=== PATIENT | female | born 1990 | race Caucasian/White ===

== ENCOUNTER 2017-10-22 05:00 | Inpatient (IN) | payer BC ==
[2017-10-22] MEDS ORDERED: Misoprostol 200 MCG Tab PO PRN (05:09)
[2017-10-22] MEDS ORDERED: Butorphanol 1 MG/ML SDV IVPUSH PRN (05:09)
[2017-10-22] MEDS ORDERED: Terbutaline 1 MG/ML SDV SUBCUT PRN (05:09)
[2017-10-22] MEDS ORDERED: Methylergonovine 0.2 MG/1 ML Amp IM PRN (05:09)
[2017-10-22] MEDS ORDERED: Sodium Chloride 0.9% 2.5 ML Syringe FLUSH PRN (05:09)
[2017-10-22] MEDS ORDERED: Lidocaine 1% 50 ML MDV INJECT PRN (05:09)
[2017-10-22] MEDS ORDERED: Sodium Chloride 0.9% 10 ML Syringe FLUSH PRN (05:09)
[2017-10-22] MEDS ORDERED: Carboprost Tromethamine 250 MCG/1 ML Amp IM PRN (05:09)
[2017-10-22] MEDS ORDERED: Nalbuphine 10 MG/1 ML Vial IVPUSH PRN (05:09)
[2017-10-22] MEDS ORDERED: Water For Irrigation,Sterile 1,000 ML Container IRR PRN (05:09)
[2017-10-22] MEDS ORDERED: Lactated Ringers 1,000 ML IV SCH (05:15)
[2017-10-22] MEDS ORDERED: Oxytocin/0.9 % Sodium Chloride 30 UNIT/500 ML BAG IV SCH ×2 (05:15)
[2017-10-22] MEDS ORDERED: Misoprostol 25 MCG (1/4 of 100 MCG) Tab VAG SCH (05:15)
--- NOTE | 2017-10-22 16:08 | PCM.PREANE ---
Preanesthetic Assessment - Procedure Proposed Procedure: labor epidural - Anesthesia/Transfusion/Family Hx Anesthesia History: Prior Anesthesia Without Reaction Family History of Anesthesia Reaction: No Transfusion History: No Prior Transfusion(s) - Review of Systems Other: Reports: None - Physical Assessment Height: 5 ft 4 in Weight: 71.214 kg ASA Class: 2 Mental Status: Alert & Oriented x3 Airway Class: Mallampati = 1 Dentition: Reports: Normal Dentition ROM/Head Extension: Full - Lab Values: Laboratory Last Values WBC 9.21 K/uL (4.0-11.0) 10/22/17 05:33 RBC 4.01 M/uL (4.30-5.90) L 10/22/17 05:33 Hgb 12.5 g/dL (12.0-16.0) 10/22/17 05:33 Hct 37.2 % (36.0-46.0) 10/22/17 05:33 MCV 92.8 fL (80.0-98.0) 10/22/17 05:33 MCH 31.2 pg (27.0-32.0) 10/22/17 05:33 MCHC 33.6 g/dL (31.0-37.0) 10/22/17 05:33 RDW Std Deviation 46.2 fl (28.0-62.0) 10/22/17 05:33 RDW Coeff of Tad 14 % (11.0-15.0) 10/22/17 05:33 Plt Count 218 K/uL (150-400) 10/22/17 05:33 MPV 9.80 fL (7.40-12.00) 10/22/17 05:33 Nucleated RBC % 0.0 /100WBC 10/22/17 05:33 Nucleated RBCs # 0 K/uL 10/22/17 05:33 POC Glucose 106 mg/dL (60-110) 10/22/17 05:32 Blood Type B POSITIVE 10/22/17 05:33 Antibody Screen NEGATIVE 10/22/17 05:33 - Allergies Allergies/Adverse Reactions: Allergies Allergy/AdvReac Type Severity Reaction Status Date / Time No Known Allergies Allergy Verified 05/14/15 05:29 - Blood Blood Available: Yes Product(s) Available: PRBC - Acknowledgements Anesthesia Type Planned: Epidural Pt an Appropriate Candidate for the Planned Anesthesia: Yes Alternatives and Risks of Anesthesia Discussed w Pt/Guardian: Yes Pt/Guardian Understands and Agrees with Anesthesia Plan: Yes PreAnesthesia Questionnaire - Past Health History Medical/Surgical History: Denies 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: - Past Surgical History Other Neurological Surgeries/Procedures: epidural x 2 with previous child - SUBSTANCE USE Smoking Status *Q: Never Smoker Tobacco Use Within Last Twelve Months: No Second Hand Smoke Exposure: No Recreational Drug Use History: No - CURRENT (IN HOUSE) MEDS Current Meds: Current Medications Butorphanol Tartrate (Stadol) 1 mg IVPUSH Q1H PRN PRN Reason: Pain Carboprost Tromethamine (Hemabate Ds) 250 mcg IM ASDIRECTED PRN PRN Reason: Post Hemorrhage Lactated Ringer's (Ringers, Lactated) 1,000 mls @ 150 mls/hr IV ASDIRECTED SAURABH Oxytocin/Sodium Chloride (Oxytocin 30 Unit/500 Ml-Ns) 30 unit in 500 mls @ 250 mls/hr IV TITRATE SAURABH Oxytocin/Sodium Chloride (Oxytocin 30 Unit/500 Ml-Ns) 30 unit in 500 mls @ 2 mls/hr IV TITRATE SAURABH; 2 MUNITS/MIN PRN Reason: Protocol Last Titration: 10/22/17 15:43 Dose: 16 munits/min, 16 mls/hr Lidocaine HCl (Xylocaine 1%) 50 ml INJECT .ONCE PRN PRN Reason: Laceration repair Methylergonovine Maleate (Methergine) 0.2 mg IM ASDIRECTED PRN PRN Reason: Post Hemorrhage Misoprostol (Cytotec) 200 mcg PO .ONCE PRN PRN Reason: Post Hemorrhage Misoprostol (Cytotec) 25 mcg VAG .ONCE SAURABH Last Admin: 10/22/17 05:59 Dose: 25 mcg Nalbuphine HCl (Nubain) 10 mg IVPUSH Q1H PRN PRN Reason: Pain (severe 7-10) Sodium Chloride (Saline Flush) 10 ml FLUSH ASDIRECTED PRN PRN Reason: Keep Vein Open Sodium Chloride (Saline Flush) 2.5 ml FLUSH ASDIRECTED PRN PRN Reason: Keep Vein Open Sterile Water (Sterile Water For Irrigation) 1,000 ml IRR ASDIRECTED PRN PRN Reason: delivery Terbutaline Sulfate (Brethine) 0.25 mg SUBCUT ASDIRECTED PRN PRN Reason: Tacysystole
[2017-10-22] MEDS ORDERED: Ropivacaine 0.2% 2 MG/ML 20 ML SDV ONE (16:11)
[2017-10-22] MEDS ORDERED: fentaNYL 100 MCG/2 ML SDV ONE (16:11)
[2017-10-22] MEDS ORDERED: Ropivacaine 100 ML ONE (16:11)
[2017-10-22] MEDS ORDERED: Measles, Mumps & Rubella Vaccine 0.5 ML SDV SUBCUT ONE (19:01)
[2017-10-22] MEDS ORDERED: Acetaminophen 500 MG Tab PO PRN ×2 (19:01)
[2017-10-22] MEDS ORDERED: Bisacodyl 10 MG Supp RECTAL PRN (19:01)
[2017-10-22] MEDS ORDERED: oxyCODONE 5 MG Tab PO PRN (19:01)
[2017-10-22] MEDS ORDERED: Benzocaine/Menthol 20%-0.5% Spray 78 GM Cannister TOP PRN (19:01)
[2017-10-22] MEDS ORDERED: Ibuprofen 400 MG Tab PO PRN (19:01)
[2017-10-22] MEDS ORDERED: Witch Hazel Medicated Pads 40/Jar TOP PRN (19:01)
[2017-10-22] MEDS ORDERED: Lanolin 100% Cream 7 GM Tube TOP PRN (19:01)
--- NOTE | 2017-10-22 21:49 | PCM48HPAN ---
Post Anesthesia Note - EVALUATION WITHIN 48HRS OF ANESTHETIC Vital Signs in Normal Range: Yes Patient Participated in Evaluation: Yes Respiratory Function Stable: Yes Airway Patent: Yes Cardiovascular Function Stable: Yes Hydration Status Stable: Yes Pain Control Satisfactory: Yes Nausea and Vomiting Control Satisfactory: Yes Mental Status Recovered: Yes
[2017-10-22] MEDS: Docusate Sodium 100 MG Cap PO PRN (21:51)
[2017-10-22] MEDS: Ibuprofen 800 MG Tab PO PRN (21:55)
--- NOTE | 2017-10-23 01:01 | OR ---
SURGEON: Virginia Devine MD DATE OF PROCEDURE: 10/22/2017 PREOPERATIVE DIAGNOSES: 1. Term at 39 weeks gestation. 2. Gestational diabetes, diet controlled. POSTOPERATIVE DIAGNOSES: 1. Term at 39 weeks gestation. 2. Gestational diabetes, diet controlled. 3. Delivered. PROCEDURE: 1. Spontaneous vaginal delivery. 2. Repair of perineal laceration. ANESTHESIA: Epidural. ESTIMATED BLOOD LOSS: 150 mL. COMPLICATIONS: None. DISPOSITION: Mother and baby stable in Labor and Delivery room. FINDINGS: Female , weight 3440 grams, score 9 and 9 at 1 and 5 minutes respectively. Grossly normal placenta with 3-vessel cord. Second-degree left mediolateral laceration. BRIEF HISTORY: Laura is a 27-year-old, G4, P 2-0-1-2, who was admitted at 39 weeks' gestation for induction of labor secondary to gestational diabetes, diet controlled. Her care was, otherwise, uncomplicated. GBS negative. On admission, she was 2 cm dilated, 60% effaced, and received Cytotec for cervical ripening. Oxytocin infusion was commenced thereafter and artificial rupture of membranes was performed when she was 4 cm dilated. Following the artificial rupture of membrane with clear amniotic fluid, she progressed rapidly to full dilatation within an hour and commenced pushing. She remained euglycemic during the intrapartum phase. She was set up for delivery in modified dorsal lithotomy position. DESCRIPTION OF PROCEDURE: She had a spontaneous vaginal delivery of a live female infant in left occipital anterior position, loose nuchal cord x2 which were easily reduced. Anterior and posterior shoulders and the rest of the baby were delivered without difficulty. Baby was vigorous and cried spontaneously at . Baby was delivered onto the maternal abdomen with the nursery nurse attending to her. Delayed cord clamping was performed, and the cord was subsequently cut by the father of the baby. With delivery of the infant, oxytocin infusion was converted to titration for active management of third stage of labor. Cord blood and gas samples were obtained. The placenta was delivered by controlled cord traction and appeared to be complete and intact. Examination of the perineum revealed a small second-degree laceration, left mediolateral, which was repaired with 3-0 Vicryl suture and was hemostatic post repair. Uterine massage was performed. The uterus was found to be well contracted below the umbilicus. The patient tolerated the procedure well. Sponge, instrument, and needle counts were correct at the end of the delivery. RAH / HARJINDER /[id number] MTDD
[2017-10-23] MEDS: Ibuprofen 800 MG Tab PO PRN (07:41)
[2017-10-23] MEDS: Docusate Sodium 100 MG Cap PO PRN (07:41)
--- NOTE | 2017-10-23 13:56 | PCM.PNPP ---
- General Info Date of Service: 10/23/17 Functional Status: Reports: Pain Controlled, Tolerating Diet, Ambulating, Urinating - Review of Systems General: Denies: Weakness HEENT: Denies: Headaches Pulmonary: Denies: Shortness of Breath, Pleuritic Chest Pain Cardiovascular: Denies: Chest Pain, Palpitations, Dyspnea on Exertion Gastrointestinal: Denies: Abdominal Pain Genitourinary: Denies: Dysuria, Incontinence, Flank Pain Musculoskeletal: Reports: No Symptoms Skin: Reports: No Symptoms Neurological: Reports: No Symptoms Psychiatric: Reports: No Symptoms - General Info Date of Service: 10/23/17 - Patient Data Vital Signs - Most Recent: Last Vital Signs Temp 36.4 C 10/23/17 08:09 Pulse 66 10/23/17 08:09 Resp 16 10/23/17 08:09 BP 105/62 10/23/17 08:09 Pulse Ox 95 10/23/17 08:09 Weight - Most Recent: 157 lb I&O - Last 24 Hours: Intake & Output 10/22/17 10/23/17 10/23/17 22:59 06:59 14:59 Intake Total 1000 Balance 1000 Lab Results - Last 24 Hours: Laboratory Results - last 24 hr 10/23/17 Range/Units 06:38 Hgb 10.8 L (12.0-16.0) g/dL Hct 31.9 L (36.0-46.0) % Med Orders - Current: Current Medications Acetaminophen (Tylenol Extra Strength) 500 mg PO Q4H PRN PRN Reason: Pain Acetaminophen (Tylenol Extra Strength) 1,000 mg PO Q4H PRN PRN Reason: Pain Benzocaine/Menthol (Dermoplast Pain Relief 20%-0.5% Tyler) 78 gm TOP ASDIRECTED PRN PRN Reason: Perineal Comfort Measure Last Admin: 10/22/17 21:20 Dose: 1 can Bisacodyl (Dulcolax) 10 mg RECTAL .ONCE PRN PRN Reason: Constipation Docusate Sodium (Colace) 100 mg PO BID PRN PRN Reason: Constipation Last Admin: 10/23/17 07:41 Dose: 100 mg Emollient Ointment (Lansinoh Hpa) 0 gm TOP ASDIRECTED PRN PRN Reason: Sore Nipples Last Admin: 10/22/17 21:50 Dose: 1 tube Ibuprofen (Motrin) 400 mg PO Q4H PRN PRN Reason: Pain Last Admin: 10/23/17 02:27 Dose: 400 mg Ibuprofen (Motrin) 800 mg PO Q6H PRN PRN Reason: Pain Last Admin: 10/23/17 07:41 Dose: 800 mg Oxycodone HCl (Oxycodone) 5 mg PO Q2H PRN PRN Reason: Pain Witch Elke (Tucks) 1 pad TOP ASDIRECTED PRN PRN Reason: comfort care Last Admin: 10/22/17 21:20 Dose: 1 tub Discontinued Medications Butorphanol Tartrate (Stadol) 1 mg IVPUSH Q1H PRN PRN Reason: Pain Carboprost Tromethamine (Hemabate Ds) 250 mcg IM ASDIRECTED PRN PRN Reason: Post Hemorrhage Fentanyl (Sublimaze) Confirm Administered Dose 200 mcg .ROUTE .STK-MED ONE Stop: 10/22/17 16:12 Lactated Ringer's (Ringers, Lactated) 1,000 mls @ 150 mls/hr IV ASDIRECTED SAURABH Last Admin: 10/22/17 16:25 Dose: 150 mls/hr Oxytocin/Sodium Chloride (Oxytocin 30 Unit/500 Ml-Ns) 30 unit in 500 mls @ 250 mls/hr IV TITRATE SAURABH Oxytocin/Sodium Chloride (Oxytocin 30 Unit/500 Ml-Ns) 30 unit in 500 mls @ 2 mls/hr IV TITRATE SAURABH; 2 MUNITS/MIN PRN Reason: Protocol Last Titration: 10/22/17 18:35 Dose: 500 munits/min, 500 mls/hr Ropivacaine (Naropin 0.2%) Confirm Administered Dose 100 mls @ as directed .ROUTE .STK-MED ONE Stop: 10/22/17 16:12 Lidocaine HCl (Xylocaine 1%) 50 ml INJECT .ONCE PRN PRN Reason: Laceration repair Measles/Mumps/Rubella Vaccine Live (M-M-R Ii Vaccine) 0.5 ml SUBCUT .ONCE ONE Stop: 10/22/17 19:02 Methylergonovine Maleate (Methergine) 0.2 mg IM ASDIRECTED PRN PRN Reason: Post Hemorrhage Misoprostol (Cytotec) 200 mcg PO .ONCE PRN PRN Reason: Post Hemorrhage Misoprostol (Cytotec) 25 mcg VAG .ONCE SAURABH Last Admin: 10/22/17 05:59 Dose: 25 mcg Nalbuphine HCl (Nubain) 10 mg IVPUSH Q1H PRN PRN Reason: Pain (severe 7-10) Ropivacaine (Naropin 0.2%) Confirm Administered Dose 20 ml .ROUTE .STK-MED ONE Stop: 10/22/17 16:12 Sodium Chloride (Saline Flush) 10 ml FLUSH ASDIRECTED PRN PRN Reason: Keep Vein Open Sodium Chloride (Saline Flush) 2.5 ml FLUSH ASDIRECTED PRN PRN Reason: Keep Vein Open Sterile Water (Sterile Water For Irrigation) 1,000 ml IRR ASDIRECTED PRN PRN Reason: delivery Terbutaline Sulfate (Brethine) 0.25 mg SUBCUT ASDIRECTED PRN PRN Reason: Tacysystole - Infant Interaction Disposition, : in Room with Family Infant Interaction: Holding Infant Feeding: Breastfed ; Nursed Well Support Person: - Recovery Exam Fundal Tone: Firm Fundal Level: 1 Fingerbreadths Below Umbilicus Fundal Placement: Midline Lochia Amount: Scant Lochia Color: Rubra/Red Perineum Description: Other (see below) Other Perinuem Description: minimal swelling Episiotomy/Laceration: Approximated Bladder Status: Voiding Urinary Elimination: Voided - Exam General: Alert, Oriented Neck: Supple Lungs: Clear to Auscultation, Normal Respiratory Effort Cardiovascular: Regular Rate, Regular Rhythm GI/Abdominal Exam: Soft Extremities: Non-Tender, Pedal Edema Skin: Warm Psy/Mental Status: Alert, Normal Affect, Normal Mood - Problem List & Annotations (1) Vaginal delivery SNOMED Code(s): 669632495 Code(s): O80 - ENCOUNTER FOR FULL-TERM UNCOMPLICATED DELIVERY Status: Acute Current Visit: Yes (2) Gestational diabetes SNOMED Code(s): 48152291 Code(s): O24.419 - GESTATIONAL DIABETES MELLITUS IN , UNSP CONTROL Status: Acute Current Visit: Yes Qualifiers: Gestational diabetes mellitus control: diet-controlled - Problem List Review Problem List Initiated/Reviewed/Updated: Yes - My Orders Last 24 Hours: My Active Orders 10/22/17 19:01 Patient Status [ADT] Routine May Shower [RC] ASDIRECTED Up ad Iram [RC] ASDIRECTED Vital Signs [RC] PER UNIT ROUTINE Acetaminophen [Tylenol Extra Strength] 1,000 mg PO Q4H PRN Acetaminophen [Tylenol Extra Strength] 500 mg PO Q4H PRN Benzocaine/Menthol [Dermoplast Pain Relief 20%-0.5% Tyler] 78 gm TOP ASDIRECTED PRN Bisacodyl [Dulcolax] 10 mg RECTAL .ONCE PRN Docusate Sodium [Colace] 100 mg PO BID PRN Ibuprofen [Motrin] 400 mg PO Q4H PRN Ibuprofen [Motrin] 800 mg PO Q6H PRN Lanolin [Lansinoh HPA] See Dose Instructions TOP ASDIRECTED PRN Witch Elke [Tucks] 1 pad TOP ASDIRECTED PRN oxyCODONE 5 mg PO Q2H PRN Assess Lochia [WOMSER] Per Unit Routine Assess Uterine Involution [WOMSER] Per Unit Routine Peripheral IV Discontinue [OM.PC] Routine Resuscitation Status Routine 10/22/17 19:03 Perineal Care [OM.PC] Per Unit Routine 10/23/17 13:44 Ready for Discharge [RC] PER UNIT ROUTINE 10/23/17 Breakfast Regular Diet [DIET] - Assessment Assessment:: PPD#1 s/p , stable and afebrile Would like to go home today, clinically stable to do so - Plan Plan:: Discharge instructions reviewed Nothing in the vagina for 6 weeks Bleeding and infection peculations reviewed To start Prozac for depression prophylaxis( prescription already sent in) . Warning S/S reviewed Continue PNV May use OTC meds for pain Follow up in 6 weeks for , will get 2hr GTT performed following that visit due hx of GDMA1
[2017-10-23 16:12] VITALS: BP 117/58
== END 2017-10-23 21:20 | disposition home or self-care (01) | DRG 560 ==
LOC: MW.OBCHECK 05:00 → MW.OB 05:02 → MW.OBCHECK 05:09 → OBSVTOIN 18:32 → MW.OB 10-23 12:59
PROVIDERS: ADMIT Obstetrics & Gynecology; ATTEND Obstetrics & Gynecology
PROC: 10E0XZZ Delivery of Products of Conception, External Approach (ICD-10-PCS; principal; 2017-10-22)
PROC: 3E0P7VZ Introduction of Hormone into Female Reproductive, Via Natural or Artificial Opening (ICD-10-PCS; 2017-10-22)
PROC: 3E033VJ Introduction of Other Hormone into Peripheral Vein, Percutaneous Approach (ICD-10-PCS; 2017-10-22)
PROC: 10907ZC Drainage of Amniotic Fluid, Therapeutic from Products of Conception, Via Natural or Artificial Opening (ICD-10-PCS; 2017-10-22)
PROC: 0KQM0ZZ Repair Perineum Muscle, Open Approach (ICD-10-PCS; 2017-10-22)
DX: O24.420 Gestational diabetes mellitus in childbirth, diet controlled (principal); O70.1 Second degree perineal laceration during delivery; Z3A.39 39 weeks gestation of pregnancy; Z37.0 Single live birth
CPT/HCPCS: 36415; 51702; 59025; 59409; 82962; 85014; 85018; 85027; 86850; 86900; 86901; 90471; 90707; A9270-GY; J2590; J7120

== ENCOUNTER 2020-04-27 20:00 | Emergency (ER) | payer BC ==
[2020-04-27] MEDS ORDERED: diphenhydrAMINE 50 MG Cap PO ONE (20:27)
--- NOTE | 2020-04-27 20:39 | EDM.PDOC ---
ED HPI GENERAL MEDICAL PROBLEM - General Chief Complaint: Allergic Reaction Stated Complaint: STIFF NECK, TROUBLE BREATHING Time Seen by Provider: 04/27/20 20:07 Source of Information: Reports: Patient History Limitations: Reports: No Limitations - History of Present Illness INITIAL COMMENTS - FREE TEXT/NARRATIVE: Presents reporting neck tightness. Patient states that last evening she took a Compazine that was ordered by her CURRICULUM ASSISTANT for nausea. She has had no nausea or vomiting today. However she states that her neck and jaw feel tight and that she is jittery and restless. No breathing problems, wheezing, mouth tongue or lip swelling, chest pain, nausea, vomiting, abdominal pain, dysuria, vaginal symptoms. Has been eating and drinking normally today. She is 12 weeks under the supervision of Dr. Martínez, CURRICULUM ASSISTANT at [facility]. Her first pre- visit was unremarkable. Otherwise healthy with no medical problems except anxiety for which she takes Prozac. - Related Data Allergies Allergy/AdvReac Type Severity Reaction Status Date / Time No Known Allergies Allergy Verified 04/27/20 20:07 Home Meds: Home Meds FLUoxetine HCl [Fluoxetine HCl] 20 mg PO DAILY 04/27/20 [History] Prochlorperazine [Compazine] 1 dose RECTAL ASDIRECTED 04/27/20 [History] Past Medical History - Past Health History Medical/Surgical History: Denies Medical/Surgical History HEENT History: Reports: None Cardiovascular History: Reports: None Respiratory History: Reports: None Gastrointestinal History: Reports: None Genitourinary History: Reports: None CURRICULUM ASSISTANT History: Reports: Musculoskeletal History: Reports: None Neurological History: Reports: None Psychiatric History: Reports: None Endocrine/Metabolic History: Reports: None Hematologic History: Reports: None Immunologic History: Reports: None Oncologic (Cancer) History: Reports: None Dermatologic History: Reports: None - Infectious Disease History Infectious Disease History: Reports: None - Past Surgical History Head Surgeries/Procedures: Reports: None HEENT Surgical History: Reports: None Cardiovascular Surgical History: Reports: None Respiratory Surgical History: Reports: None GI Surgical History: Reports: None Female Surgical History: Reports: None Endocrine Surgical History: Reports: None Neurological Surgical History: Reports: None Other Neurological Surgeries/Procedures: epidural x 2 with previous child Musculoskeletal Surgical History: Reports: None Oncologic Surgical History: Reports: None Dermatological Surgical History: Reports: None Social & Family History - Family History Family Medical History: Noncontributory Oncologic: Reports: Lung - Tobacco Use Smoking Status *Q: Never Smoker Second Hand Smoke Exposure: No - Caffeine Use Caffeine Use: Reports: None - Recreational Drug Use Recreational Drug Use: No ED ROS ALLERGIC REACTION - Review of Systems Review Of Systems: Comprehensive ROS is negative, except as noted in HPI. ED EXAM GENERAL NO PERIP PULSE - Physical Exam Exam: See Below Exam Limited By: No Limitations General Appearance: Alert, No Apparent Distress Ears: Normal External Exam Nose: Normal Inspection Throat/Mouth: Normal Inspection, Normal Oropharynx, Other (No TMJ crepitus, no tenderness masses or swelling over the jaw) Head: Atraumatic, Normocephalic Neck: Normal Inspection, Non-Tender, Full Range of Motion. No: Lymphadenopathy (L), Lymphadenopathy (R) Respiratory/Chest: No Respiratory Distress, Lungs Clear, Normal Breath Sounds Cardiovascular: Normal Peripheral Pulses, Regular Rate, Rhythm, No Edema GI/Abdominal: Normal Bowel Sounds, Soft, Non-Tender Back Exam: Normal Inspection Extremities: Normal Inspection Neurological: Alert, Oriented, CN II-XII Intact, Normal Cognition Psychiatric: Normal Affect, Normal Mood Skin Exam: Warm, Dry, Intact, Normal Color, No Rash Lymphatic: No Adenopathy Course - Vital Signs Last Recorded V/S: Last Vital Signs Temp 36.7 C 04/27/20 20:04 Pulse 114 H 04/27/20 20:04 Resp 19 04/27/20 20:04 BP 133/85 04/27/20 20:04 Pulse Ox 99 04/27/20 20:04 - Orders/Labs/Meds Meds: Medications Discontinued Medications Generic Name Dose Route Start Last Admin Trade Name Jase PRN Reason Stop Dose Admin Diphenhydramine HCl 50 mg 04/27/20 20:27 04/27/20 20:30 Benadryl PO 04/27/20 20:28 50 mg ONETIME ONE Administration - Re-Assessments/Exams Free Text/Narrative Re-Assessment/Exam: 04/27/20 21:27 States that her neck tightness has improved. Departure - Departure Time of Disposition: 21:28 Disposition: Home, Self-Care 01 Condition: Good Clinical Impression: Dystonic drug reaction - Discharge Information Referrals: PCP,None [Primary Care Provider] - Preeti Martínez MD [Physician] - Additional Instructions: The following information is given to patients seen in the emergency department who are being discharged to home. This information is to outline your options for follow-up care. We provide all patients seen in our emergency department with a follow-up referral. The need for follow-up, as well as the timing and circumstances, are variable depending upon the specifics of your emergency department visit. If you don't have a primary care physician on staff, we will provide you with a referral. We always advise you to contact your personal physician following an emergency department visit to inform them of the circumstance of the visit and for follow-up with them and/or the need for any referrals to a consulting specialist. The emergency department will also refer you to a specialist when appropriate. This referral assures that you have the opportunity for follow-up care with a specialist. All of these measure are taken in an effort to provide you with optimal care, which includes your follow-up. Under all circumstances we always encourage you to contact your private physician who remains a resource for coordinating your care. When calling for follow-up care, please make the office aware that this follow-up is from your recent emergency room visit. If for any reason you are refused follow-up, please contact the [facility] Emergency Department at and asked to speak to the emergency department charge nurse. 1. Take Benadryl 1-2 25mg caps every 6 hours as needed for continued symptoms. Discontinue when symptoms resolve. 2. Do not take Compazine. 3. Notify your raw products director if you continue to suffer from nausea and vomiting. Sepsis Event Note (ED) - Evaluation Sepsis Screening Result: No Definite Risk - Focused Exam Vital Signs: Vital Signs Temp Pulse Resp BP Pulse Ox 04/27/20 20:04 36.7 C 114 H 19 133/85 99
[2020-04-27 21:45] VITALS: BP 113/68; PULSE 88
== END 2020-04-27 21:45 | disposition home or self-care (01) ==
LOC: MW.ED 20:00
DX: G24.09 Other drug induced dystonia (principal); T43.3X5A Adverse effect of phenothiazine antipsychotics and neuroleptics, initial encounter; Z79.899 Other long term (current) drug therapy
CPT/HCPCS: 99283; A9270; 99282

== ENCOUNTER 2020-11-08 19:02 | Inpatient (IN) | payer BC ==
[2020-11-08] MEDS ORDERED: Methylergonovine 0.2 MG/1 ML Amp IM PRN (20:16)
[2020-11-08] MEDS ORDERED: Tranexamic Acid 1,000 MG in Sodium Chloride 0.9% 100 ML IV PRN (20:16)
[2020-11-08] MEDS ORDERED: Water For Irrigation,Sterile 1,000 ML Container IRR PRN (20:16)
[2020-11-08] MEDS ORDERED: Butorphanol 1 MG/ML SDV IVPUSH PRN (20:16)
[2020-11-08] MEDS ORDERED: Sodium Chloride 0.9% 10 ML SDV IV PRN (20:16)
[2020-11-08] MEDS ORDERED: Ampicillin 2 GM in Sodium Chloride 0.9% 100 ML IV ONE (20:16)
[2020-11-08] MEDS ORDERED: Carboprost Tromethamine 250 MCG/1 ML Amp IM PRN (20:16)
[2020-11-08] MEDS ORDERED: Lidocaine 1% 50 ML MDV INJECT PRN (20:16)
[2020-11-08] MEDS ORDERED: Sodium Chloride 0.9% 2.5 ML Syringe FLUSH PRN (20:16)
[2020-11-08] MEDS ORDERED: Misoprostol 200 MCG Tab PO PRN (20:16)
[2020-11-08] MEDS ORDERED: Ondansetron 4 MG/2 ML SDV IVPUSH PRN (20:16)
[2020-11-08] MEDS ORDERED: Nalbuphine 10 MG/1 ML Vial IVPUSH PRN (20:16)
[2020-11-08] MEDS ORDERED: Sodium Chloride 0.9% 10 ML Syringe FLUSH PRN (20:16)
[2020-11-08] MEDS ORDERED: Oxytocin/0.9 % Sodium Chloride 30 UNIT/500 ML BAG IV SCH ×2 (20:30→22:45)
[2020-11-08] MEDS: Lactated Ringers 1,000 ML IV SCH (20:57)
--- NOTE | 2020-11-08 21:35 | PCM.PREANE ---
Preanesthetic Assessment - Anesthesia/Transfusion/Family Hx Anesthesia History: Prior Anesthesia Without Reaction Family History of Anesthesia Reaction: No Transfusion History: No Prior Transfusion(s) Intubation History: Unknown - Review of Systems General: No Symptoms Pulmonary: No Symptoms Cardiovascular: No Symptoms Gastrointestinal: No Symptoms Neurological: No Symptoms Other: Reports: None - Physical Assessment NPO Status Date: 11/08/20 NPO Status Time: 21:40 Height: 1.65 m Weight: 72.575 kg ASA Class: 2 Mental Status: Alert & Oriented x3 Airway Class: Mallampati = 1 Dentition: Reports: Normal Dentition Thyro-Mental Finger Breadths: 3 Mouth Opening Finger Breadths: 3 ROM/Head Extension: Full Lungs: Clear to Auscultation Cardiovascular: Regular Rate - Lab Values: Laboratory Last Values WBC 9.48 K/uL (4.0-11.0) 11/08/20 20:00 RBC 3.78 M/uL (4.30-5.90) L 11/08/20 20:00 Hgb 11.6 g/dL (12.0-16.0) L 11/08/20 20:00 Hct 36.1 % (36.0-46.0) 11/08/20 20:00 MCV 95.5 fL (80.0-98.0) 11/08/20 20:00 MCH 30.7 pg (27.0-32.0) 11/08/20 20:00 MCHC 32.1 g/dL (31.0-37.0) 11/08/20 20:00 RDW Std Deviation 53.4 fl (28.0-62.0) 11/08/20 20:00 RDW Coeff of Tad 15 % (11.0-15.0) 11/08/20 20:00 Plt Count 224 K/uL (150-400) 11/08/20 20:00 MPV 10.40 fL (7.40-12.00) 11/08/20 20:00 Nucleated RBC % 0.0 /100WBC 11/08/20 20:00 Nucleated RBCs # 0 K/uL 11/08/20 20:00 Membrane Rupture POSITIVE 11/08/20 19:15 SARS-CoV-2 RNA ([facility]ACE[facility]) NEGATIVE (NEGATIVE) 11/08/20 20:09 Blood Type B POSITIVE 11/08/20 20:00 Antibody Screen NEGATIVE 11/08/20 20:00 - Allergies Allergies/Adverse Reactions: Allergies Allergy/AdvReac Type Severity Reaction Status Date / Time prochlorperazine Allergy Other Verified 11/04/20 14:19 - Blood Blood Available: No Product(s) Available: None - Anesthesia Plan Pre-Op Medication Ordered: None - Acknowledgements Anesthesia Type Planned: Epidural Pt an Appropriate Candidate for the Planned Anesthesia: Yes Alternatives and Risks of Anesthesia Discussed w Pt/Guardian: Yes Pt/Guardian Understands and Agrees with Anesthesia Plan: Yes Additional Comments: , 4-5cm in early labor. Will start on Pitocin @22:00. Has had TOMAS's in past, expecting one with this delivery. Discussed, ? answered, will proceed when requested. PreAnesthesia Questionnaire - Past Health History Medical/Surgical History: Denies Medical/Surgical History HEENT History: Reports: None Cardiovascular History: Reports: None Respiratory History: Reports: None Gastrointestinal History: Reports: None Genitourinary History: Reports: None [employer] History: Reports: , Spontaneous Musculoskeletal History: Reports: None Neurological History: Reports: None Psychiatric History: Reports: None Endocrine/Metabolic History: Reports: None Hematologic History: Reports: None Immunologic History: Reports: None Oncologic (Cancer) History: Reports: None Dermatologic History: Reports: None - Infectious Disease History Infectious Disease History: Reports: Chicken Pox - Past Surgical History Head Surgeries/Procedures: Reports: None HEENT Surgical History: Reports: None Cardiovascular Surgical History: Reports: None Respiratory Surgical History: Reports: None GI Surgical History: Reports: None Female Surgical History: Reports: None Endocrine Surgical History: Reports: None Neurological Surgical History: Reports: None Other Neurological Surgeries/Procedures: epidural x 2 with previous child Musculoskeletal Surgical History: Reports: None Oncologic Surgical History: Reports: None Dermatological Surgical History: Reports: None - SUBSTANCE USE Tobacco Use Status *Q: Never Tobacco User Second Hand Smoke Exposure: No Recreational Drug Use History: No - HOME MEDS Home Medications: Home Meds FLUoxetine HCl [Fluoxetine HCl] 20 mg PO DAILY 04/27/20 [History] - CURRENT (IN HOUSE) MEDS Current Meds: Current Medications Butorphanol Tartrate (Stadol) 1 mg IVPUSH Q1H PRN PRN Reason: Pain Carboprost Tromethamine (Hemabate Ds) 250 mcg IM ASDIRECTED PRN PRN Reason: Post Hemorrhage Lactated Ringer's (Ringers, Lactated) 1,000 mls @ 150 mls/hr IV ASDIRECTED [facility] Last Admin: 11/08/20 20:57 Dose: 150 mls/hr Documented by: Oxytocin/Sodium Chloride (Oxytocin 30 Unit/500 Ml-Ns) 30 unit in 500 mls @ 999 mls/hr IV TITRATE [facility] Tranexamic Acid 1,000 mg/ (Sodium Chloride) 110 mls @ 660 mls/hr IV ONETIME PRN PRN Reason: Bleeding Lidocaine HCl (Xylocaine 1%) 50 ml INJECT ONETIME PRN PRN Reason: Laceration repair Methylergonovine Maleate (Methergine) 0.2 mg IM ASDIRECTED PRN PRN Reason: Post Hemorrhage Misoprostol (Cytotec) 200 mcg PO ONETIME PRN PRN Reason: Post Hemorrhage Nalbuphine HCl (Nubain) 10 mg IVPUSH Q1H PRN PRN Reason: Pain (severe 7-10) Ondansetron HCl (Zofran) 4 mg IVPUSH Q4H PRN PRN Reason: Nausea/Vomiting Sodium Chloride (Saline Flush) 10 ml FLUSH ASDIRECTED PRN PRN Reason: Keep Vein Open Sodium Chloride (Saline Flush) 2.5 ml FLUSH ASDIRECTED PRN PRN Reason: Keep Vein Open Sodium Chloride (Normal Saline) 10 ml IV ASDIRECTED PRN PRN Reason: IV Use Sterile Water (Sterile Water For Irrigation) 1,000 ml IRR ASDIRECTED PRN PRN Reason: delivery Discontinued Medications Ampicillin Sodium 2 gm/ Sodium (Chloride) 100 mls @ 200 mls/hr IV ONETIME ONE Stop: 11/08/20 20:45 Last Admin: 11/08/20 20:58 Dose: 200 mls/hr Documented by:
[2020-11-09] MEDS: Ampicillin 1 GM in Sodium Chloride 0.9% 50 ML IV SCH ×2 (01:48→05:48)
[2020-11-09] MEDS: Lactated Ringers 1,000 ML IV SCH ×3 (01:49→09:14)
[2020-11-09] MEDS ORDERED: fentaNYL 100 MCG/2 ML SDV ONE (08:06)
[2020-11-09] MEDS ORDERED: Ropivacaine 0.2% PF 2 MG/ML 20 ML SDV ONE (08:07)
[2020-11-09] MEDS ORDERED: Ropivacaine HCl/PF 100 ML ONE (08:07)
--- NOTE | 2020-11-09 08:30 | PCM.SN.2 ---
- Free Text/Narrative Note: Called for CSE. Rediscussed with patient. Permit signed. Will proceed. 4-5cm. Active labor. Pain 05/17/
[2020-11-09] MEDS ORDERED: Ibuprofen 400 MG Tab PO PRN (09:47)
[2020-11-09] MEDS ORDERED: Lanolin 100% Cream 7 GM Tube TOP PRN (09:47)
[2020-11-09] MEDS ORDERED: Benzocaine/Menthol 20%-0.5% Spray 78 GM Cannister TOP PRN (09:47)
[2020-11-09] MEDS ORDERED: Witch Hazel Medicated Pads 40/Jar TOP PRN (09:47)
[2020-11-09] MEDS ORDERED: oxyCODONE 5 MG Tab PO PRN (09:47)
[2020-11-09] MEDS ORDERED: Methylergonovine 0.2 MG/1 ML Amp IM PRN (09:47)
[2020-11-09] MEDS ORDERED: Bisacodyl 10 MG Supp RECTAL PRN (09:47)
[2020-11-09] MEDS ORDERED: Acetaminophen 500 MG Tab PO PRN ×2 (09:47)
[2020-11-09] MEDS ORDERED: Docusate Sodium 100 MG Cap PO PRN (09:47)
--- NOTE | 2020-11-09 09:53 | PCM.DEL ---
L & D Note - General Info Date of Service: 11/09/20 Mother's Due Date: 11/14/20 - Delivery Note Labor: Augmented by Oxytocin Delivery Outcome: Livebirth Infant Delivery Method: Spontaneous Vaginal Delivery-Single Presentation: Left Occiput Anterior (MICHAEL) Nuchal Cord: Present (x1, tight, delivered through) Anesthesia Type: Epidural Amniotic Fluid Description: Clear Episiotomy Type: None Laceration: 2nd Degree Suture type: Vicryl Suture size: 3-0 Placenta: Intact, Spontaneous Cord: 3 Vessels Estimated Blood Loss: 200 : Bulb Syringe, Stimulated, Warmed, [place] Used, Warmer Used Provider: Pilar Mayes Score 1 min: 4 Score 5 min: 8 Delivery Comments (Free Text/Narrative):: Dictation #[id number] - General Info Date of Service: 11/09/20 - Patient Data Weight - Most Recent: 160 lb I&O - Last 24 Hours: Intake & Output 11/08/20 11/09/20 11/09/20 22:59 06:59 14:59 Intake Total 100 Balance 100 Lab Results Last 24 Hours: Laboratory Results - last 24 hr 11/08/20 11/08/20 11/08/20 Range/Units 19:15 20:00 20:00 WBC 9.48 (4.0-11.0) K/uL RBC 3.78 L (4.30-5.90) M/uL Hgb 11.6 L (12.0-16.0) g/dL Hct 36.1 (36.0-46.0) % MCV 95.5 (80.0-98.0) fL MCH 30.7 (27.0-32.0) pg MCHC 32.1 (31.0-37.0) g/dL RDW Std Deviation 53.4 (28.0-62.0) fl RDW Coeff of Tad 15 (11.0-15.0) % Plt Count 224 (150-400) K/uL MPV 10.40 (7.40-12.00) fL Nucleated RBC % 0.0 /100WBC Nucleated RBCs # 0 K/uL Membrane Rupture POSITIVE SARS-CoV-2 RNA (LACEY) (NEGATIVE) Blood Type B POSITIVE Antibody Screen NEGATIVE 11/08/20 Range/Units 20:09 WBC (4.0-11.0) K/uL RBC (4.30-5.90) M/uL Hgb (12.0-16.0) g/dL Hct (36.0-46.0) % MCV (80.0-98.0) fL MCH (27.0-32.0) pg MCHC (31.0-37.0) g/dL RDW Std Deviation (28.0-62.0) fl RDW Coeff of Tad (11.0-15.0) % Plt Count (150-400) K/uL MPV (7.40-12.00) fL Nucleated RBC % /100WBC Nucleated RBCs # K/uL Membrane Rupture SARS-CoV-2 RNA (LACEY) NEGATIVE (NEGATIVE) Blood Type Antibody Screen Med Orders - Current: Current Medications Butorphanol Tartrate (Stadol) 1 mg IVPUSH Q1H PRN PRN Reason: Pain Carboprost Tromethamine (Hemabate Ds) 250 mcg IM ASDIRECTED PRN PRN Reason: Post Hemorrhage Lactated Ringer's (Ringers, Lactated) 1,000 mls @ 150 mls/hr IV ASDIRECTED [facility] Last Admin: 11/09/20 09:14 Dose: 150 mls/hr Documented by: Oxytocin/Sodium Chloride (Oxytocin 30 Unit/500 Ml-Ns) 30 unit in 500 mls @ 999 mls/hr IV TITRATE [facility] Tranexamic Acid 1,000 mg/ (Sodium Chloride) 110 mls @ 660 mls/hr IV ONETIME PRN PRN Reason: Bleeding Oxytocin/Sodium Chloride (Oxytocin 30 Unit/500 Ml-Ns) 30 unit in 500 mls @ 2 mls/hr IV TITRATE [facility]; Protocol Last Infusion: 11/09/20 07:48 Dose: 14 munits/min, 14 mls/hr Documented by: Ampicillin Sodium 1 gm/ Sodium (Chloride) 50 mls @ 100 mls/hr IV Q4H [facility] Lidocaine HCl (Xylocaine 1%) 50 ml INJECT ONETIME PRN PRN Reason: Laceration repair Methylergonovine Maleate (Methergine) 0.2 mg IM ASDIRECTED PRN PRN Reason: Post Hemorrhage Misoprostol (Cytotec) 200 mcg PO ONETIME PRN PRN Reason: Post Hemorrhage Nalbuphine HCl (Nubain) 10 mg IVPUSH Q1H PRN PRN Reason: Pain (severe 7-10) Ondansetron HCl (Zofran) 4 mg IVPUSH Q4H PRN PRN Reason: Nausea/Vomiting Sodium Chloride (Saline Flush) 10 ml FLUSH ASDIRECTED PRN PRN Reason: Keep Vein Open Sodium Chloride (Saline Flush) 2.5 ml FLUSH ASDIRECTED PRN PRN Reason: Keep Vein Open Sodium Chloride (Normal Saline) 10 ml IV ASDIRECTED PRN PRN Reason: IV Use Sterile Water (Sterile Water For Irrigation) 1,000 ml IRR ASDIRECTED PRN PRN Reason: delivery Discontinued Medications Fentanyl (Sublimaze) Confirm Administered Dose 100 mcg .ROUTE .STK-MED ONE Stop: 11/09/20 08:07 Ampicillin Sodium 2 gm/ Sodium (Chloride) 100 mls @ 200 mls/hr IV ONETIME ONE Stop: 11/08/20 20:45 Last Admin: 11/08/20 20:58 Dose: 200 mls/hr Documented by: Ampicillin Sodium 1 gm/ Sodium (Chloride) 50 mls @ 100 mls/hr IV Q4H [facility] Last Admin: 11/09/20 05:48 Dose: 100 mls/hr Documented by: Ropivacaine (Naropin 0.2%) Confirm Administered Dose 100 mls @ as directed .ROUTE .STK-MED ONE Stop: 11/09/20 08:08 Ropivacaine (Naropin 0.2%) Confirm Administered Dose 20 ml .ROUTE .STK-MED ONE Stop: 11/09/20 08:08 - Problem List Review Problem List Initiated/Reviewed/Updated: Yes - My Orders Last 24 Hours: My Active Orders 11/09/20 09:47 Patient Status [ADT] Routine May Shower [RC] ASDIRECTED Up ad Iram [RC] ASDIRECTED Vital Signs [RC] PER UNIT ROUTINE Acetaminophen [Tylenol Extra Strength] 1,000 mg PO Q4H PRN Acetaminophen [Tylenol Extra Strength] 500 mg PO Q4H PRN Benzocaine/Menthol [Dermoplast Pain Relief 20%-0.5% [place]] 78 gm TOP ASDIRECTED PRN Docusate Sodium [Colace] 100 mg PO BID PRN Ibuprofen [Motrin] 400 mg PO Q4H PRN Ibuprofen [Motrin] 800 mg PO Q6H PRN Lanolin [Lansinoh HPA] See Dose Instructions TOP ASDIRECTED PRN Methylergonovine [Methergine] 0.2 mg IM ONETIME PRN bisacodyL [Dulcolax] 10 mg RECTAL ONETIME PRN oxyCODONE 5 mg PO Q2H PRN witch Gertrude [Tucks] 1 pad TOP ASDIRECTED PRN Assess Lochia [WOMSER] Per Unit Routine Assess Uterine Involution [WOMSER] Per Unit Routine Peripheral IV Discontinue [OM.PC] Routine 11/10/20 05:11 HEMOGLOBIN/HEMATOCRIT,HH [HEME] Timed - Assessment Assessment:: 30 year old G6 now P4024 s/p at 39w2d after spontaneous rupture of membranes with positive GBS - Plan Plan:: Routine cares * Rh positive, rubella immune * GBS +, s/p Ampicillin x3 doses * PO pain medications ordered PRN * Encourage ambulation and fluid intake when able * Regular diet as tolerated * Plans to breastfeed Dispo: stable. Anticipate routine course.
[2020-11-09] MEDS ORDERED: Ampicillin 1 GM in Sodium Chloride 0.9% 50 ML IV SCH (10:00)
--- NOTE | 2020-11-09 11:20 | OR ---
SURGEON: DICK LEDESMA MD DATE OF PROCEDURE: 11/09/2020 PROCEDURE: Spontaneous vaginal delivery. PREOPERATIVE DIAGNOSES: 1. Term intrauterine at 39 weeks and 2 days. 2. Spontaneous rupture of membranes. 3. Group B Streptococcus positive. POSTOPERATIVE DIAGNOSES: 1. Term intrauterine at 39 weeks and 2 days. 2. Spontaneous rupture of membranes. 3. Group B Streptococcus positive. PROCEDURE: Spontaneous vaginal delivery. PRIMARY SURGEON: Dick Ledesma MD ANESTHESIA: Epidural. COMPLICATIONS: None known. ESTIMATED BLOOD LOSS: 200 mL. INDICATIONS: A 30-year-old 6, para 3-0-2-3 at 39 weeks and 1 day, presented to Labor and Delivery on November 08, 2020, with complaint of spontaneous rupture of membranes that occurred at approximately 1830. The patient was noted to be group B Streptococcus positive and ampicillin was initiated at time of admission. Pitocin was started at approximately 2200 to augment labor. On the morning of November 09, 2020, the patient was noted to be 5 cm with a tight forebag, which was ruptured. Clear fluid noted. The patient received an epidural at that time. Labor quickly progressed. FINDINGS: Normal-appearing female infant, cephalic presentation, clear amniotic fluid. scores of . Weight 3510 g. A second-degree perineal laceration. DESCRIPTION OF PROCEDURE: I was called by nursing staff approximately 8:55 to notify the patient was 9 cm and feeling uncomfortable. I presented to the patient's room, and a cervical exam was performed. An anterior lip was noted and the patient was at +1 station. The patient allowed to continue expectant management, and at approximately 9:20, the patient was noted to be completely dilated and +2 station, and pushing efforts were initiated as patient desired to labor in the side-lying position. Over the next 3 contractions, the patient pushed with good efforts, and infant's head delivered atraumatically and a tight nuchal cord was noted and the rest of the 's shoulders and body were then delivered. Nose and mouth bulb suctioned, and the infant placed on mother's chest and nursing staff who was awaiting there. At that time, the cord was clamped and cut, and then transferred to the warmer for further evaluation and stimuli. Cord blood gases along with arterial and venous blood were obtained. The placenta was then expressed, and a three-vessel cord was noted. The cervix, vaginal sidewalls, and perineum were then evaluated and a small second-degree laceration was noted. It was repaired in normal fashion with 3-0 Vicryl. Hemostasis was then noted. Sponge, lap, and needle count were correct x2. The patient and infant stable in the delivery room at this time. ROSA GRANDE /[id number] MTDD
[2020-11-09] MEDS: Ibuprofen 800 MG Tab PO PRN (19:38)
--- NOTE | 2020-11-10 08:00 | PCM48HPAN ---
Post Anesthesia Note - EVALUATION WITHIN 48HRS OF ANESTHETIC Vital Signs in Normal Range: Yes Patient Participated in Evaluation: Yes Respiratory Function Stable: Yes Airway Patent: Yes Cardiovascular Function Stable: Yes Hydration Status Stable: Yes Pain Control Satisfactory: Yes Nausea and Vomiting Control Satisfactory: Yes Mental Status Recovered: Yes Vital Signs: Last Vital Signs Temp 36.3 C 11/10/20 04:15 Pulse 64 11/10/20 04:15 Resp 14 11/10/20 04:15 BP 111/56 L 11/10/20 04:15 Pulse Ox 95 11/09/20 20:42
--- NOTE | 2020-11-10 08:22 | PCM.PNPP ---
- General Info Date of Service: 11/10/20 Subjective Update: Patient doing well today. going well thus far. Functional Status: Reports: Pain Controlled, Tolerating Diet, Ambulating, Urinating - Review of Systems General: Reports: No Symptoms HEENT: Reports: No Symptoms Pulmonary: Reports: No Symptoms Cardiovascular: Reports: No Symptoms Gastrointestinal: Reports: No Symptoms Genitourinary: Reports: No Symptoms Musculoskeletal: Reports: No Symptoms Skin: Reports: No Symptoms Neurological: Reports: No Symptoms Psychiatric: Reports: No Symptoms - Patient Data Vital Signs - Most Recent: Last Vital Signs Temp 36.3 C 11/10/20 04:15 Pulse 64 11/10/20 04:15 Resp 14 11/10/20 04:15 BP 111/56 L 11/10/20 04:15 Pulse Ox 95 11/09/20 20:42 Weight - Most Recent: 72.575 kg Lab Results - Last 24 Hours: Laboratory Results - last 24 hr 11/09/20 11/09/20 11/10/20 Range/Units 09:26 09:26 05:26 Hgb 11.0 L (12.0-16.0) g/dL Hct 34.2 L (36.0-46.0) % Cord ABG pH 7.216 (7.18-7.38) Cord ABG Base Excess -3 (-10--2) Cord VBG pH 7.401 (7.25-7.45) Cord VBG Base Excess 0.5 H (-10--2) Med Orders - Current: Current Medications Acetaminophen (Tylenol Extra Strength) 500 mg PO Q4H PRN PRN Reason: Pain Acetaminophen (Tylenol Extra Strength) 1,000 mg PO Q4H PRN PRN Reason: Pain Benzocaine/Menthol (Dermoplast Pain Relief 20%-0.5% [place]) 78 gm TOP ASDIRECTED PRN PRN Reason: Perineal Comfort Measure Bisacodyl (Dulcolax) 10 mg RECTAL ONETIME PRN PRN Reason: Constipation Butorphanol Tartrate (Stadol) 1 mg IVPUSH Q1H PRN PRN Reason: Pain Carboprost Tromethamine (Hemabate Ds) 250 mcg IM ASDIRECTED PRN PRN Reason: Post Hemorrhage Docusate Sodium (Colace) 100 mg PO BID PRN PRN Reason: Constipation Emollient Ointment (Lansinoh Hpa) 0 gm TOP ASDIRECTED PRN PRN Reason: Sore Nipples Lactated Ringer's (Ringers, Lactated) 1,000 mls @ 150 mls/hr IV ASDIRECTED [facility] Last Admin: 11/09/20 09:14 Dose: 150 mls/hr Documented by: Oxytocin/Sodium Chloride (Oxytocin 30 Unit/500 Ml-Ns) 30 unit in 500 mls @ 999 mls/hr IV TITRATE [facility] Tranexamic Acid 1,000 mg/ (Sodium Chloride) 110 mls @ 660 mls/hr IV ONETIME PRN PRN Reason: Bleeding Oxytocin/Sodium Chloride (Oxytocin 30 Unit/500 Ml-Ns) 30 unit in 500 mls @ 2 ml s/hr IV TITRATE [facility]; Protocol Last Infusion: 11/09/20 07:48 Dose: 14 munits/min, 14 mls/hr Documented by: Ampicillin Sodium 1 gm/ Sodium (Chloride) 50 mls @ 100 mls/hr IV Q4H [facility] Ibuprofen (Motrin) 400 mg PO Q4H PRN PRN Reason: Pain Ibuprofen (Motrin) 800 mg PO Q6H PRN PRN Reason: Pain Last Admin: 11/09/20 19:38 Dose: 800 mg Documented by: Lidocaine HCl (Xylocaine 1%) 50 ml INJECT ONETIME PRN PRN Reason: Laceration repair Methylergonovine Maleate (Methergine) 0.2 mg IM ASDIRECTED PRN PRN Reason: Post Hemorrhage Methylergonovine Maleate (Methergine) 0.2 mg IM ONETIME PRN PRN Reason: Excessive Vaginal Bleeding Misoprostol (Cytotec) 200 mcg PO ONETIME PRN PRN Reason: Post Hemorrhage Nalbuphine HCl (Nubain) 10 mg IVPUSH Q1H PRN PRN Reason: Pain (severe 7-10) Ondansetron HCl (Zofran) 4 mg IVPUSH Q4H PRN PRN Reason: Nausea/Vomiting Oxycodone HCl (Oxycodone) 5 mg PO Q2H PRN PRN Reason: Pain Sodium Chloride (Saline Flush) 10 ml FLUSH ASDIRECTED PRN PRN Reason: Keep Vein Open Sodium Chloride (Saline Flush) 2.5 ml FLUSH ASDIRECTED PRN PRN Reason: Keep Vein Open Sodium Chloride (Normal Saline) 10 ml IV ASDIRECTED PRN PRN Reason: IV Use Sterile Water (Sterile Water For Irrigation) 1,000 ml IRR ASDIRECTED PRN PRN Reason: delivery Saida Bedoya (Jovanycks) 1 pad TOP ASDIRECTED PRN PRN Reason: comfort care Discontinued Medications Fentanyl (Sublimaze) Confirm Administered Dose 100 mcg .ROUTE .STK-MED ONE Stop: 11/09/20 08:07 Ampicillin Sodium 2 gm/ Sodium (Chloride) 100 mls @ 200 mls/hr IV ONETIME ONE Stop: 11/08/20 20:45 Last Admin: 11/08/20 20:58 Dose: 200 mls/hr Documented by: Ampicillin Sodium 1 gm/ Sodium (Chloride) 50 mls @ 100 mls/hr IV Q4H [facility] Last Admin: 11/09/20 05:48 Dose: 100 mls/hr Documented by: Ropivacaine (Naropin 0.2%) Confirm Administered Dose 100 mls @ as directed .ROUTE .STK-MED ONE Stop: 11/09/20 08:08 Ropivacaine (Naropin 0.2%) Confirm Administered Dose 20 ml .ROUTE .STK-MED ONE Stop: 11/09/20 08:08 - Infant Interaction Infant Disposition, : [place] to Nursery Feeding: Breastfed ; Nursed Well Support Person: - Recovery Exam Fundal Level: 2 Fingerbreadths Below Umbilicus Fundal Placement: Midline Lochia Amount: Small Lochia Color: Rubra/Red Bladder Status: Voiding Urinary Elimination: Voided - Exam General: Alert, Oriented Neck: Supple Lungs: Normal Respiratory Effort GI/Abdominal Exam: Soft, Non-Tender, No Distention Skin: Warm, Dry, Intact Neurological: No New Focal Deficit Psy/Mental Status: Alert, Normal Affect, Normal Mood - Problem List & Annotations (1) Vaginal delivery SNOMED Code(s): 561642541 Code(s): O80 - ENCOUNTER FOR FULL-TERM UNCOMPLICATED DELIVERY Status: Acute Current Visit: No - Problem List Review Problem List Initiated/Reviewed/Updated: Yes - Assessment Assessment:: 30 year old G6 now P4024 s/p at 39w2d after spontaneous rupture of membranes with positive GBS, PPD#1 - Plan Plan:: Stay today due to GBS+ status and Manager Surgical recommendations for monitoring baby. Patient without complaints and doing well. Continue routine care. Anticipate discharge home tomorrow morning.
[2020-11-10] MEDS: Ibuprofen 800 MG Tab PO PRN (08:48)
[2020-11-10 09:22] VITALS: BP 104/60; PULSE 65
== END 2020-11-10 16:00 | disposition home or self-care (01) | DRG 560 ==
LOC: MW.OB 19:02 → MW.OBCHECK 19:02 → MW.OB 20:16 → MW.OBCHECK 20:16 → OBSVTOIN 11-09 09:47 → MW.OB 11-09 17:56
PROVIDERS: ADMIT Obstetrics & Gynecology; ATTEND Obstetrics & Gynecology
PROC: 10E0XZZ Delivery of Products of Conception, External Approach (ICD-10-PCS; principal; 2020-11-09)
PROC: 10907ZC Drainage of Amniotic Fluid, Therapeutic from Products of Conception, Via Natural or Artificial Opening (ICD-10-PCS; 2020-11-09)
PROC: 0KQM0ZZ Repair Perineum Muscle, Open Approach (ICD-10-PCS; 2020-11-09)
PROC: 3E0R3BZ Introduction of Anesthetic Agent into Spinal Canal, Percutaneous Approach (ICD-10-PCS; 2020-11-09)
DX: O99.824 Streptococcus B carrier state complicating childbirth (principal); Z3A.39 39 weeks gestation of pregnancy; Z37.0 Single live birth; O69.1XX0 Labor and delivery complicated by cord around neck, with compression, not applicable or unspecified; O70.1 Second degree perineal laceration during delivery; Z20.822 Contact with and (suspected) exposure to COVID-19
CPT/HCPCS: 36415; 59025; 59409; 82803; 84112; 85014; 85018; 85027; 86592; 86850; 86900; 86901; A9270-GY; J0290; J2590; J2795; J3010; J7120; U0002

== ENCOUNTER 2021-10-11 07:10 | Day surgery (SDC) | payer BC, MEDICAID ==
[~2021-10-11 07:10] MED LIST: Lactated Ringers 1,000 ML IV SCH; Sodium Chloride 0.9% 10 ML Syringe FLUSH PRN; Sodium Chloride 0.9% 2.5 ML Syringe FLUSH PRN; Sodium Chloride 0.9% 20 ML SDV IV PRN
[2021-10-11] MEDS ORDERED: Propofol 200 MG/20 ML SDV ONE (07:30)
[2021-10-11] MEDS ORDERED: fentaNYL 100 MCG/2 ML SDV ONE (07:30)
--- NOTE | 2021-10-11 08:22 | PCM.PREANE ---
Preanesthetic Assessment - Procedure Proposed Procedure: Colonoscopy - Anesthesia/Transfusion/Family Hx Anesthesia History: No Prior Anesthesia Family History of Anesthesia Reaction: No Transfusion History: No Prior Transfusion(s) Intubation History: Unknown - Review of Systems General: No Symptoms (Pt is breast feeding) Pulmonary: No Symptoms Cardiovascular: No Symptoms Gastrointestinal: No Symptoms Neurological: No Symptoms Other: Reports: Anxiety - Physical Assessment NPO Status Date: 10/11/21 NPO Status Time: 06:50 (a few ounces of water) Vital Signs: Last Vital Signs Temp 98.1 F 10/11/21 07:39 Pulse 81 10/11/21 07:39 Resp 16 10/11/21 07:39 BP 98/62 10/11/21 07:39 Pulse Ox 97 10/11/21 07:39 Height: 5 ft 5 in Weight: 63.049 kg ASA Class: 2 Mental Status: Alert & Oriented x3 Airway Class: Mallampati = 1 Dentition: Reports: Normal Dentition Thyro-Mental Finger Breadths: 3 Mouth Opening Finger Breadths: 3 ROM/Head Extension: Full Lungs: Clear to Auscultation, Normal Respiratory Effort Cardiovascular: Regular Rate, Regular Rhythm - Lab Values: Laboratory Last Values Urine HCG, Qual NEGATIVE (NEGATIVE) 10/11/21 07:14 - Allergies Allergies/Adverse Reactions: Allergies Allergy/AdvReac Type Severity Reaction Status Date / Time prochlorperazine Allergy neck/jaw Verified 10/05/21 07:40 stiffness - Acknowledgements Anesthesia Type Planned: General Anesthesia Pt an Appropriate Candidate for the Planned Anesthesia: Yes Alternatives and Risks of Anesthesia Discussed w Pt/Guardian: Yes Pt/Guardian Understands and Agrees with Anesthesia Plan: Yes PreAnesthesia Questionnaire - Past Health History Medical/Surgical History: Denies Medical/Surgical History HEENT History: Reports: Other (See Below) Other HEENT History: wears glasses Cardiovascular History: Reports: None Respiratory History: Reports: None Gastrointestinal History: Reports: Other (See Below) Other Gastrointestinal History: c/o rectal pain Genitourinary History: Reports: None [employer] REPRESENTATIVE History: Reports: , Spontaneous Musculoskeletal History: Reports: None Neurological History: Reports: None Psychiatric History: Reports: Anxiety Endocrine/Metabolic History: Reports: Diabetes, Gestational Hematologic History: Reports: None Immunologic History: Reports: None Oncologic (Cancer) History: Reports: None Dermatologic History: Reports: None - Infectious Disease History Infectious Disease History: Reports: Chicken Pox - Past Surgical History Head Surgeries/Procedures: Reports: None HEENT Surgical History: Reports: None Cardiovascular Surgical History: Reports: None Respiratory Surgical History: Reports: None GI Surgical History: Reports: None Female Surgical History: Reports: None Endocrine Surgical History: Reports: None Neurological Surgical History: Reports: None Musculoskeletal Surgical History: Reports: None Oncologic Surgical History: Reports: None Dermatological Surgical History: Reports: Other (See Below) - SUBSTANCE USE Tobacco Use Status *Q: Former Tobacco User Tobacco Use Within Last Twelve Months: No - HOME MEDS Home Medications: Home Meds FLUoxetine HCl [Fluoxetine HCl] 20 mg PO DAILY 04/27/20 [History] Nitroglycerin [Rectiv] 1 applic RECTAL BID PRN 10/05/21 [History] - CURRENT (IN HOUSE) MEDS Current Meds: Current Medications Lactated Ringer's (Ringers, Lactated) 1,000 mls @ 125 mls/hr IV ASDIRECTED SAURABH Last Admin: 10/11/21 07:41 Dose: 125 mls/hr Documented by: Sodium Chloride (Sodium Chloride 0.9% 10 Ml Syringe) 10 ml FLUSH ASDIRECTED PRN PRN Reason: Keep Vein Open Sodium Chloride (Sodium Chloride 0.9% 2.5 Ml Syringe) 2.5 ml FLUSH ASDIRECTED PRN PRN Reason: Keep Vein Open Sodium Chloride (Sodium Chloride 0.9% 10 Ml Syringe) 10 ml FLUSH ASDIRECTED PRN PRN Reason: Keep Vein Open Sodium Chloride (Sodium Chloride 0.9% 2.5 Ml Syringe) 2.5 ml FLUSH ASDIRECTED PRN PRN Reason: Keep Vein Open Sodium Chloride (Sodium Chloride 0.9% 20 Ml Sdv) 10 ml IV ASDIRECTED PRN PRN Reason: IV Use Discontinued Medications Fentanyl (Fentanyl 100 Mcg/2 Ml Sdv) Confirm Administered Dose 100 mcg .ROUTE .STK-MED ONE Stop: 10/11/21 07:31 Lidocaine HCl (Lidocaine 1% 5 Ml Sdv) Confirm Administered Dose 5 ml .ROUTE .STK-MED ONE Stop: 10/11/21 07:31 Propofol (Propofol 200 Mg/20 Ml Sdv) Confirm Administered Dose 400 mg .ROUTE .STK-MED ONE Stop: 10/11/21 07:31
--- NOTE | 2021-10-11 09:42 | PCM.POSTAN ---
POST ANESTHESIA ASSESSMENT - MENTAL STATUS Mental Status: Alert, Oriented - VITAL SIGNS Vital Signs: Last Vital Signs Temp 98.1 F 10/11/21 07:39 Pulse 81 10/11/21 07:39 Resp 16 10/11/21 07:39 BP 98/62 10/11/21 07:39 Pulse Ox 97 10/11/21 07:39 - RESPIRATORY Respiratory Status: Respiratory Rate WNL, Airway Patent, O2 Saturation Stable - CARDIOVASCULAR CV Status: Pulse Rate WNL, Blood Pressure Stable - GASTROINTESTINAL GI Status: No Symptoms - POST OP HYDRATION Hydration Status: Adequate & Stable
--- NOTE | 2021-10-11 09:45 | PCM48HPAN ---
Post Anesthesia Note - EVALUATION WITHIN 48HRS OF ANESTHETIC Vital Signs in Normal Range: Yes Patient Participated in Evaluation: Yes Respiratory Function Stable: Yes Airway Patent: Yes Cardiovascular Function Stable: Yes Hydration Status Stable: Yes Pain Control Satisfactory: Yes Nausea and Vomiting Control Satisfactory: Yes Mental Status Recovered: Yes Vital Signs: Last Vital Signs Temp 98.1 F 10/11/21 07:39 Pulse 81 10/11/21 07:39 Resp 16 10/11/21 07:39 BP 98/62 10/11/21 07:39 Pulse Ox 97 10/11/21 07:39
[2021-10-11 10:04] VITALS: BP 98/52; PULSE 65
--- NOTE | 2021-10-11 10:52 | PCM.OPNOTE ---
- General Post-Op/Procedure Note Date of Surgery/Procedure: 10/11/21 Operative Procedure(s): Screening colonoscopy Findings: 1) Flat sessile cecal polyp around appendicile orifice 2) Transverse colon polyp @ 70 cm- Biopsied 3) Sigmoid colon polyp @ 40 cm- Resected 4) Sigmoid colon diverticulosis 5) Hyperplastic polyps of rectum Pre Op Diagnosis: History of colon polyps Post-Op Diagnosis: Sigmoid colon polyp, sigmoid diverticulosis, rectal h yperplastic polyps, transverse colon polyp, cecal polyp [place] [facility] [place]geon: Preeti Perez Condition: Good Free Text/Narrative:: Intake & Output 10/10/21 10/11/21 10/11/21 22:59 06:59 14:59 Intake Total 1100 Balance 1100
--- NOTE | 2021-10-11 11:43 | PCM.OPNOTE ---
- General Post-Op/Procedure Note Date of Surgery/Procedure: 10/11/21 Operative Procedure(s): Diagnostic colonoscopy Findings: posterior midline anal fissure Pre Op Diagnosis: Perianal pain, change in bowel habits Post-Op Diagnosis: Anal fissure Anesthesia Technique: MAC Primary Surgeon: Preeti Perez Condition: Good Free Text/Narrative:: Intake & Output 10/10/21 10/11/21 10/11/21 22:59 06:59 14:59 Intake Total 1100 Balance 1100
--- NOTE | 2021-10-11 14:24 | OR ---
SURGEON: PREETI PEREZ MD DATE OF PROCEDURE: 10/11/2021 PREOPERATIVE DIAGNOSES: Anal pain, change in bowel habits. POSTOPERATIVE DIAGNOSIS: Anal fissure. PROCEDURE PERFORMED: Diagnostic colonoscopy with biopsies. PRIMARY SURGEON: Preeti Perez MD ANESTHESIA: General mask. INSTRUMENT USED: Olympus colonoscope. EXTENT OF EXAM: To the cecum. PREPARATION: Good. LIMITATIONS: None. INDICATIONS FOR EXAMINATION: The patient is a 31-year-old female who presented to clinic with a change in her bowel habits as well as anal pain. She has been using nifedipine cream with marginal improvement in her symptoms. The patient and I discussed the need for diagnostic colonoscopy. I explained the procedure, expected perioperative course, and the risks. The patient verbalized understanding and wishes to proceed. PROCEDURE IN DETAIL: The patient was brought to the endoscopy suite and placed in a left lateral decubitus position. A time-out was completed verifying the patient's name, age, date of , allergies, and procedure to be performed. Anesthesia was induced, and continuous oxygen was provided via nasal cannula throughout the procedure. After adequate sedation was achieved, a digital rectal exam was performed. The patient was noted to have a posterior midline fissure. There was blood coming from this area. A well-lubricated colonoscope was inserted into the rectum and advanced under direct visualization to the level of cecum. The cecum was identified by both visual and anatomic landmarks. A photograph was taken of the cecal cap; however, I was unable to retroflex the scope within the cecum due to looping of the scope more proximally due to a somewhat redundant colon. The scope was then fully withdrawn while examining the color, texture, anatomy, and integrity of mucosa from the cecum to the anal canal. I attempted to intubate the terminal ileum but could not; however, the terminal ileum mucosa all appeared healthy and pink with no signs of inflammation. Biopsies were taken in the cecum, ascending colon, transverse colon, descending colon, sigmoid colon, and rectum and sent for histologic review. The scope was brought into the rectum and retroflexed to allow visualization of the anal canal opening. Overall, this appeared normal. The scope was straightened out and fully withdrawn. The cecum to anus time was 10 minutes. The patient tolerated the procedure well and was transferred to the PACU in stable condition. ENDOSCOPIC DIAGNOSIS: Anal fissure. RECOMMENDATIONS: We will switch the patient to a nifedipine-lidocaine ointment to be applied q.i.d. We will see her in clinic in 2 weeks to discuss her biopsy results and any next steps in treatment. SARAY GRANDE /[id number]
== END 2021-10-11 10:15 | disposition home or self-care (01) ==
LOC: MW.SDS 07:10
PROVIDERS: ATTEND Surgery
DX: K58.9 Irritable bowel syndrome, unspecified (principal); K60.2 Anal fissure, unspecified; L29.3 Anogenital pruritus, unspecified; Z88.8 Allergy status to other drugs, medicaments and biological substances; Z98.890 Other specified postprocedural states
CPT/HCPCS: 00811; 81025; J2704; J3010; J7120